=== PATIENT | male | born 1980 | race Caucasian/White ===

== ENCOUNTER 2017-07-05 21:58 | Emergency (ER) | payer OTHER ==
[2017-07-06 00:55] LABS: APPEARANCE,URINE CLEAR; BILIRUBIN,URINE NEGATIVE (NEGATIVE); GLUCOSE, URINE NEGATIVE (NEGATIVE); KETONES,URINE NEGATIVE (NEGATIVE); LEUKOCYTE ESTERASE,URINE NEGATIVE (NEGATIVE); NITRITE,URINE NEGATIVE (NEGATIVE); PROTEIN,URINE 30 mg/dL (NEGATIVE); URINE SPECIFIC GRAVITY 1.028
[2017-07-06] MEDS ORDERED: IBUPROFEN 600 MG TABLET PO ONE (01:38)
--- NOTE | 2017-07-06 01:40 | ER Document Report ---
ED General - General Chief Complaint: Abdominal Pain Stated Complaint: LOWER ABDOMINAL PAIN Time Seen by Provider: 07/05/17 23:41 Notes: Patient is a 36-year-old male without past medical history who presents with 3 days of intermittent right inguinal pain. States that that is a stabbing, sharp , severe pain that is present whenever he is standing or moving but is not present when he is lying flat in bed. He has intermittently had these symptoms over the last several months but they have never lasted this long. Denies any acute injury. He has not seen his primary care doctor regarding today's concerns. Denies any vomiting, diarrhea or testicular pain. TRAVEL OUTSIDE OF THE [place] IN LAST 30 DAYS: No - Related Data Allergies/Adverse Reactions: No Known Allergies Allergy (Verified 07/10/13 15:53) Past Medical History - General Information source: Patient - Social History Smoking Status: Current Every Day Smoker Chew tobacco use (# tins/day): No Frequency of alcohol use: Social Drug Abuse: None Lives with: Spouse/Significant other Family History: Reviewed & Not Pertinent Patient has suicidal ideation: No Patient has homicidal ideation: No - Past Medical History Cardiac Medical History: Reports: Hx Hypertension - no meds-diet controlled Pulmonary Medical History: Denies: Hx Asthma, Hx Bronchitis, Hx Pneumonia Endocrine Medical History: Denies: Hx Diabetes Mellitus Type 2 Renal/ Medical History: Denies: Hx Peritoneal Dialysis Past Surgical History: Reports: Hx Oral Surgery - wisdom teeth, Hx Orthopedic Surgery - pins in right hand - Immunizations Immunizations up to date: Yes Hx Diphtheria, Pertussis, Tetanus Vaccination: Yes Review of Systems - Review of Systems Notes: Constitutional: Negative for fever. HENT: Negative for sore throat. Eyes: Negative for visual changes. Cardiovascular: Negative for chest pain. Respiratory: Negative for shortness of breath. Gastrointestinal: Positive for left lower abdominal pain Genitourinary: Negative for dysuria. Musculoskeletal: Negative for back pain. Skin: Negative for rash. Neurological: Negative for headaches, weakness or numbness. 10 point ROS negative except as marked above and in HPI. Physical Exam - Vital signs Vitals: Temp Pulse Resp BP Pulse Ox 98 F 80 16 119/85 99 07/05/17 22:14 07/05/17 22:14 07/05/17 22:14 07/05/17 22:14 07/05/17 22:14 Interpretation: Normal Notes: PHYSICAL EXAMINATION: GENERAL: Well-appearing, well-nourished and in no acute distress. HEAD: Atraumatic, normocephalic. EYES: Pupils equal round and reactive to light, extraocular movements intact, sclera anicteric, conjunctiva are normal. ENT: nares patent, oropharynx clear without exudates. Moist mucous membranes. NECK: Normal range of motion, supple without lymphadenopathy LUNGS: Breath sounds clear to auscultation bilaterally and equal. No wheezes rales or rhonchi. HEART: Regular rate and rhythm without murmurs ABDOMEN: Soft, nontender, normoactive bowel sounds. No guarding, no rebound. No masses appreciated. : Mild left testicular tenderness to palpation. No hernia in the left inguinal canal. Positive cremasteric reflex bilaterally. No penile lesions. EXTREMITIES: Normal range of motion, no pitting or edema. No cyanosis. NEUROLOGICAL: No focal neurological deficits. Moves all extremities spontaneously and on command. PSYCH: Normal mood, normal affect. SKIN: Warm, Dry, normal turgor, no rashes or lesions noted. Course - Re-evaluation Re-evalutation: 07/06/17 01:39 Patient presents with 2 days of pain in the left inguinal canal and left testicle with ambulation. Exam shows a slight inguinal defect but no appreciable hernia, exquisite left epididymal tenderness, mild swelling to the left testicle. Positive cremasteric reflex bilaterally. Patient has absolutely no abdominal tenderness on palpation. Will obtain a testicular ultrasound 07/06/17 02:58 Testicular ultrasound does show a left-sided hydrocele. This is consistent with patient's history of his pain being worsened with standing and lifting but improved if he lies flat or raises his testicles. I have encouraged the patient to wear supportive briefs and follow-up with urology. At this time will discharge with return precautions and follow-up recommendations. Verbal discharge instructions given a the bedside and opportunity for questions given. Medication warnings reviewed. Patient is in agreement with this plan and has verbalized understanding of return precautions and the need for primary care follow-up in the next 24-72 hours. - Vital Signs Vital signs: Temp Pulse Resp BP Pulse Ox 97.9 F 69 17 121/91 H 98 07/06/17 03:19 07/06/17 03:19 07/06/17 03:19 07/06/17 03:19 07/06/17 03:19 - Laboratory Laboratory results interpreted by me: 07/06/17 00:30 Urine Protein 30 H Urine Urobilinogen 2.0 H - Diagnostic Test Radiology reviewed: Reports reviewed Discharge - Discharge Clinical Impression: Hydrocele in adult Condition: Good Disposition: HOME, SELF-CARE Additional Instructions: You have a left-sided hydrocele which is fluid around your left testicle. This is likely the cause of your pain. You need to follow-up with a urologist if your symptoms are not improving in the next 1 week. Continue to wear supportive briefs that raise your testicle. You may take ibuprofen every 6 hours as needed. Return to the emergency department if you have worsening pain , fever greater than 101F, persistent vomiting, or any other symptoms that are worrisome to you. Forms: Return to Work
[2017-07-06 01:44] LABS: URINE BARBITURATES SCREEN NEGATIVE; URINE METHADONE SCREEN NEGATIVE; URINE OPIATES LOW NEGATIVE; URINE PHENCYCLIDINE SCREEN NEGATIVE
--- NOTE | 2017-07-06 02:38 | RADIOLOGY REPORT (SQ) ---
EXAM DESCRIPTION: U/S SCROTUM W/DOPPLER COMPLETED DATE/TIME: 07/06/2017 2:12 am REASON FOR STUDY: Left epididymal tenderness, eval inguinal hernia COMPARISON: None. TECHNIQUE: Static and realtime simms scale imaging of the scrotum and testes. Selected color Doppler and spectral images recorded to document blood flow. LIMITATIONS: None. FINDINGS: RIGHT: TESTICLE: Normal size. Normal echotexture. Normal blood flow. No mass. 3.9 cm. EPIDIDYMIS: Normal. HYDROCELE OR VARICOCELE: No. HERNIA OR EXTRA-TESTICULAR MASS: No. OTHER: No other significant finding. LEFT: 4.1 cm. TESTICLE: Normal size. Normal echotexture. Normal blood flow. No mass. EPIDIDYMIS: Normal. HYDROCELE OR VARICOCELE: Small. HERNIA OR EXTRA-TESTICULAR MASS: No. OTHER: No other significant finding. Other: No sonographic evidence of inguinal/ scrotal hernia with and without Valsalva, as queried. IMPRESSION: Small left hydrocele. Otherwise, unremarkable SCROTAL ULTRASOUND. NO EVIDENCE OF TESTIC ULAR MASS OR TORSION. No demonstrated hernia. TECHNICAL DOCUMENTATION: JOB ID: [id number]- All Rights Reserved
[2017-07-06] MEDS ORDERED: HYDROCODONE/ACETAMINOPHEN 5-325 MG TABLET PO ONE (03:18)
[2017-07-06 03:20] VITALS: BP 121/91
== END 2017-07-06 03:19 | disposition home or self-care (01) ==
LOC: ER 21:58
DX: N43.3 Hydrocele, unspecified (principal); R10.9 Unspecified abdominal pain; R10.30 Lower abdominal pain, unspecified; F17.200 Nicotine dependence, unspecified, uncomplicated
CPT/HCPCS: 76870; 80307; 81001; 93976; 99284

== ENCOUNTER 2017-09-11 20:16 | Emergency (ER) | payer OTHER ==
--- NOTE | 2017-09-11 21:54 | RADIOLOGY REPORT (SQ) ---
EXAM DESCRIPTION: FOOT LEFT COMPLETE COMPLETED DATE/TIME: 09/11/2017 9:38 pm REASON FOR STUDY: injury COMPARISON: None. NUMBER OF VIEWS: Three views. TECHNIQUE: AP, lateral and oblique radiographic images acquired of the left foot. LIMITATIONS: None. FINDINGS: MINERALIZATION: Normal. BONES: No acute fracture or dislocation. No worrisome bone lesions. JOINTS: No effusions. SOFT TISSUES: No soft tissue swelling. No foreign body. OTHER: No other significant finding. IMPRESSION: NEGATIVE STUDY OF THE LEFT FOOT. NO RADIOGRAPHIC EVIDENCE OF ACUTE INJURY. TECHNICAL DOCUMENTATION: JOB ID: [id number] [employer]- All Rights Reserved
[2017-09-11] MEDS ORDERED: IBUPROFEN 600 MG TABLET PO ONE (22:16)
[2017-09-11] MEDS ORDERED: ONDANSETRON 4 MG TAB.RAPDIS PO ONE (22:16)
[2017-09-11] MEDS ORDERED: OXYCODONE-ACETAMINOPHEN 5-325 MG TABLET PO ONE (22:16)
--- NOTE | 2017-09-11 22:17 | ER Document Report ---
HPI - HPI Patient complains to provider of: left ankle injury Pain Level: 5 Context: 37-year-old male, chief complaint of left ankle injury, states he dunked a basketball and then landed awkwardly on his ankle causing a sharp pain and swelling soon after. He states he can barely walk on the ankle. He denies any other injuries. He takes no daily medications. - CARDIOVASCULAR Cardiovascular: DENIES: Chest pain - DERM Skin Color: Erythema Past Medical History - General Information source: Patient - Social History Smoking Status: Current Every Day Smoker Chew tobacco use (# tins/day): No Frequency of alcohol use: Rare Drug Abuse: None Lives with: Family Family History: Reviewed & Not Pertinent Patient has suicidal ideation: No Patient has homicidal ideation: No - Past Medical History Cardiac Medical History: Reports: Hx Hypertension - no meds-diet controlled Pulmonary Medical History: Denies: Hx Asthma, Hx Bronchitis, Hx Pneumonia Endocrine Medical History: Denies: Hx Diabetes Mellitus Type 2 Renal/ Medical History: Denies: Hx Peritoneal Dialysis Past Surgical History: Reports: Hx Oral Surgery - wisdom teeth, Hx Orthopedic Surgery - pins in right hand - Immunizations Immunizations up to date: Yes Hx Diphtheria, Pertussis, Tetanus Vaccination: Yes Vertical Provider Document - CONSTITUTIONAL General Appearance: WD/WN, Mild Distress - Patient does appear to be mildly uncomfortable - INFECTION CONTROL TRAVEL OUTSIDE OF THE [place] IN LAST 30 DAYS: No - HEENT HEENT: Atraumatic, Normocephalic - NECK Neck: Normal Inspection - RESPIRATORY Respiratory: Breath Sounds Normal, No Respiratory Distress O2 Sat by Pulse Oximetry: 99 - CARDIOVASCULAR Cardiovascular: Regular Rate, Regular Rhythm - GI/ABDOMEN Gastrointestinal: Abdomen Soft, Abdomen Non-Tender - BACK Back: Normal Inspection - MUSCULOSKELETAL/EXTREMETIES Musculoskeletal/Extremeties: Tender - Tenderness over the dorsal foot and over the left lateral malleolus area, soft tissue swelling noted, no deformity, normal capillary refill and sensation, normal dorsalis pedis, normal leg, knee, hip exam - NEURO Level of Consciousness: Awake, Alert, Appropriate Motor/Sensory: No Motor Deficit, No Sensory Deficit - DERM Integumentary: Warm, Dry, No Rash Course - Re-evaluation Re-evalutation: X-rays negative for fracture. Soft tissue swelling noted, patient placed in crutches, ankle stearate, discussed sprain care, discussed follow-up recommendations and return precautions. - Vital Signs Vital signs: Temp Pulse Resp BP Pulse Ox 98.7 F 95 16 124/83 99 09/11/17 20:38 09/11/17 20:38 09/11/17 20:38 09/11/17 20:38 09/11/17 20:38 Procedures - Immobilization Left ankle Pre-Proc Neuro Vasc Exam: Normal Immobilizer type: Leonel wrap, Ankle stirrup Performed by: RN Post-Proc Neuro Vasc Exam: Normal Alignment checked and good: Yes Discharge - Discharge Clinical Impression: Left ankle injury Qualifiers: Encounter type: initial encounter Qualified Code(s): S99.912A - Unspecified injury of left ankle, initial encounter Condition: Stable Disposition: HOME, SELF-CARE Additional Instructions: Examination and x-rays consistent with sprain of the left ankle without evidence of fracture. Apply ice to the area, elevate, use the crutches, use a splint, take the anti-inflammatory. Do so for about the next 2-3 days. Afterwards resume activity as tolerated. Follow-up with primary care. Return to emergency department for any concerning symptoms including severe swelling or pain. Prescriptions: Naproxen 500 mg PO BID #20 tablet Forms: Return to Work, Treatment of Relative/Child
--- NOTE | 2017-09-11 23:06 | RADIOLOGY REPORT (SQ) ---
EXAM DESCRIPTION: ANKLE LEFT COMPLETE COMPLETED DATE/TIME: 09/11/2017 10:28 pm REASON FOR STUDY: left ankle injury and swelling COMPARISON: None. NUMBER OF VIEWS: Three views. TECHNIQUE: AP, lateral, and oblique radiographic images acquired of the left ankle. LIMITATIONS: None. FINDINGS: MINERALIZATION: Normal. BONES: No acute fracture or dislocation. No worrisome bone lesions. JOINTS: No effusions. SOFT TISSUES: No soft tissue swelling. No foreign body. OTHER: No other significant finding. IMPRESSION: NO RADIOGRAPHIC EVIDENCE OF ACUTE INJURY. TECHNICAL DOCUMENTATION: JOB ID: [id number] [employer]- All Rights Reserved
[2017-09-11 23:10] VITALS: BP 143/87
[2017-09-11] MEDS ORDERED: HYDROCODONE/ACETAMINOPHEN 5-325 MG (6 TAB/ER DISP) PO PRN (23:26)
== END 2017-09-11 23:30 | disposition home or self-care (01) ==
LOC: ER 20:16
PROC: 2W3RX1Z Immobilization of Left Lower Leg using Splint (ICD-10-PCS; principal; 2017-09-11)
DX: S99.912A Unspecified injury of left ankle, initial encounter (principal); F17.200 Nicotine dependence, unspecified, uncomplicated; X50.1XXA Overexertion from prolonged static or awkward postures, initial encounter; Y93.67 Activity, basketball
CPT/HCPCS: 99283; 73610; 73630; 29515; L1902; S0119

== ENCOUNTER 2018-03-09 17:40 | Emergency (ER) | payer OTHER ==
[2018-03-09 17:51] VITALS: BP 134/83
[2018-03-09] MEDS ORDERED: LIDOCAINE 5% (700 MG) TRANSDERMAL ADH..PATCH TP ONE (18:53)
[2018-03-09] MEDS ORDERED: KETOROLAC TROMETHAMINE INJ/PF 30 MG/1 ML SDV IM ONE (18:53)
[2018-03-09] MEDS ORDERED: DEXAMETHASONE SOD PHOS INJ 10 MG/1 ML VIAL IM ONE (18:53)
--- NOTE | 2018-03-09 19:00 | ER Document Report ---
HPI - HPI Pain Level: 5 Notes: Patient is a 37-year-old male with no significant past medical history presents to the ED complaining of low back pain status post injury yesterday. Patient states that he was lifting 50 pound bags of cement when he lifted 1 of them and twisted to put it in his vehicle. Patient states that that is the moment that he felt pain. Patient states that the pain does not radiate and stays to his lower back. He notices worsening pain with truncal movements and sitting for prolonged periods. He is otherwise still eating and drinking without difficulties. He is urinating normally and having normal bowel movements. He has not had any injections or procedures to his lower back. Denies any previous history of spinal abscess. Denies any headache, fever, URI, sore throat, chest pain, palpitations, syncope, cough, shortness of breath, wheeze, dyspnea, abdominal pain, nausea/vomiting/diarrhea, urinary retention, dysuria, hematuria, loss of control of bowel or bladder, numbness/tingling, saddle anesthesia, muscle paralysis/weakness, or rash. - ROS Systems Reviewed and Negative: Yes All other systems reviewed and negative Past Medical History - Social History Smoking Status: Current Every Day Smoker Family History: Reviewed & Not Pertinent - Past Medical History Cardiac Medical History: Reports: Hx Hypertension - no meds-diet controlled Pulmonary Medical History: Denies: Hx Asthma, Hx Bronchitis, Hx Pneumonia Endocrine Medical History: Denies: Hx Diabetes Mellitus Type 2 Renal/ Medical History: Denies: Hx Peritoneal Dialysis Past Surgical History: Reports: Hx Oral Surgery - wisdom teeth, Hx Orthopedic Surgery - pins in right hand - Immunizations Immunizations up to date: Yes Hx Diphtheria, Pertussis, Tetanus Vaccination: Yes Vertical Provider Document - CONSTITUTIONAL Agree With Documented VS: Yes Notes: PHYSICAL EXAMINATION: GENERAL: Well-appearing, well-nourished and in no acute distress. LUNGS: Breath sounds clear to auscultation bilaterally and equal. No wheezes rales or rhonchi. HEART: Regular rate and rhythm without murmurs, rubs, gallops. ABDOMEN: Soft, nontender, nondistended abdomen. No guarding, no rebound. No masses appreciated. Normal bowel sounds present. No CVA tenderness bilaterally. No pulsatile mass Musculoskeletal: LE's b/l: FROM to passive/active. Strength 5+/5. No deficits noted. No bony tenderness of extremities. Back: FROM to passive/active. Strength 5+/5. No vertebral point tenderness, stepoffs, or deformities. No other bony tenderness, erythema, swelling, or ecchymosis. SLR negative b/l. + mild tenderness to the Lt L-paraspinal mm, correlates with pain described. Mild spasming. No SI jt tenderness. No foot drop Extremities: No cyanosis, clubbing, or edema b/l. Peripheral pulses 2+. Capillary refill less than 2 seconds. NEUROLOGICAL: Normal speech, ataxic gait. Normal sensory, motor exams. Reflexes 2+ b/l. PSYCH: Normal mood, normal affect. SKIN: Warm, Dry, normal turgor, no rashes or lesions noted. - INFECTION CONTROL TRAVEL OUTSIDE OF THE [place] IN LAST 30 DAYS: No Course - Re-evaluation Re-evalutation: 03/09/18 19:19 Patient is an afebrile, well-hydrated, 37-year-old male who presents to the ED with low back pain, suspect low back strain versus sprain. Vitals are acceptable. PE is otherwise unremarkable for any focal neurological deficits. X-ray was unremarkable for any acute pathology. No other labs or imaging warranted at this time based on H&P. Patient was given Decadron and Toradol as well as a Lidoderm patch. Low suspicion for any meningitis, fracture, expanding /ruptured AAA, cauda equina syndrome, epidural mass lesion/abscess, herniated disc causing severe spinal stenosis, or other systemic infection at this time. Patient is aware that his condition can change from initial presentation and that he needs monitor symptoms closely for any acute changes. I will send him home with a prescription for naproxen and baclofen. Conservative measures otherwise for symptoms. Recheck with your PCM in 3-5 days. Consider consult orthopedic/physical therapy. Return to the ED with any worsening/concerning symptoms otherwise as reviewed discharge. Patient is in agreement. - Vital Signs Vital signs: Temp Pulse Resp BP Pulse Ox 97.9 F 75 14 134/83 H 97 03/09/18 17:47 03/09/18 17:47 03/09/18 17:47 03/09/18 17:47 03/09/18 17:47 Discharge - Discharge Clinical Impression: Low back strain Qualifiers: Encounter type: initial encounter Qualified Code(s): S39.012A - Strain of muscle, fascia and tendon of lower back, initial encounter Condition: Stable Disposition: HOME, SELF-CARE Instructions: Ice Packs ([facility]), Low Back Pain ([facility]), Muscle Strain ([facility]), Warm Packs ([facility]) Additional Instructions: Rest, Ice, Compression, Elevation Tylenol/ibuprofen as needed Light stretches daily Strength exercises as able Moist heat and massage may help F/u with your PCP in 3-5 days for a recheck Consider consult(s) with Orthopedics/physical therapy for ongoing/worsening symptoms Return to the ED with any worsening symptoms and/or development of fever, headache, chest pain, palpitations, syncope, shortness of breath, trouble breathing, abdominal pain, n/v/d, blood in stool/urine, loss of control of bowel /bladder, urinary retention, muscle weakness/paralysis, saddle anesthesia, numbness/tingling, or other worsening symptoms that are concerning to you. Prescriptions: Baclofen [Baclofen 10 mg Tablet] 5 - 10 mg PO BID PRN #10 tablet PRN Reason: Naproxen 500 mg PO BID PRN #30 tablet PRN Reason: Forms: Elevated Blood Pressure, Smoking Cessation Education Referrals: [facility] ([place]) [Provider Group] - Follow up as needed
--- NOTE | 2018-03-09 19:18 | RADIOLOGY REPORT (SQ) ---
EXAM DESCRIPTION: L SPINE WHOLE COMPLETED DATE/TIME: 03/09/2018 7:10 pm REASON FOR STUDY: low back pain s/p injury COMPARISON: None. NUMBER OF VIEWS: Five views including obliques. TECHNIQUE: AP, lateral, oblique, and sacral radiographic images acquired of the lumbar spine. LIMITATIONS: None. FINDINGS: MINERALIZATION: Normal. SEGMENTATION: Normal. No transitional anatomy. ALIGNMENT: Normal. VERTEBRAE: Maintained height. No fracture or worrisome bone lesion. DISCS: Mild disc space narrowing L5-S1. POSTERIOR ELEMENTS: Pars defect L5 on the left. HARDWARE: None in the spine. PARASPINAL SOFT TISSUES: Normal. PELVIS: Intact as visualized. No fractures or worrisome bone lesions. SI joints intact. OTHER: No other significant finding. IMPRESSION: No acute findings. Disc space narrowing L5-S1. Pars defect left L5. TECHNICAL DOCUMENTATION: JOB ID: [id number] [employer]- All Rights Reserved Reading location - IP/workstation name: [email or web address]
[2018-03-09] MEDS ORDERED: HYDROCODONE/ACETAMINOPHEN 5-325 MG (6 TAB/ER DISP) PO PRN (19:21)
== END 2018-03-09 19:50 | disposition home or self-care (01) ==
LOC: ER 17:40
DX: S39.012A Strain of muscle, fascia and tendon of lower back, initial encounter (principal); X50.0XXA Overexertion from strenuous movement or load, initial encounter; Y93.89 Activity, other specified; F17.200 Nicotine dependence, unspecified, uncomplicated
CPT/HCPCS: 99283; 96372; 72110; J1885; J1100

== ENCOUNTER 2020-04-22 20:37 | Emergency (ER) | payer OTHER ==
[2020-04-22] MEDS ORDERED: DIAZEPAM 5 MG TABLET PO ONE (20:53)
[2020-04-22] MEDS ORDERED: OXYCODONE-ACETAMINOPHEN 5-325 MG TABLET PO ONE (20:53)
--- NOTE | 2020-04-22 20:56 | ER Document Report ---
ED Neck/Back Problem - General Chief Complaint: Back Pain Stated Complaint: BACK PAIN Time Seen by Provider: 04/22/20 20:53 Primary Care Provider: EMMY VALLE MD [Primary Care Provider] - Follow up as needed JEANNE KAYE DO [ACTIVE STAFF] - Follow up as needed Notes: CHIEF COMPLAINT: Low back pain HPI: 39-year-old male presenting to the emergency department complaining of low back injury tonight. Patient lifted a 30 pound sandbag and then threw up behind him and felt immediate pain in the lower back. No incontinence of urine or bowel no weakness numbness or tingling in the legs. Patient does report that he has had some discomfort in the past in his back but never anything like this. Injury occurred today. ROS: See HPI - all other systems were reviewed and are otherwise negative Constitutional: no fever GI: no vomiting, no diarrhea, no abdominal pain : no dysuria Integumentary: no rash Allergy: no hives Musculoskeletal: no extremity pain or swelling Neurological: no numbness/tingling, no weakness MEDICATIONS: I agree with the patient medications as charted by the RN. ALLERGIES: I agree with the allergies as charted by the RN. PAST MEDICAL HISTORY/PAST SURGICAL HISTORY: Reviewed and agree as charted by RN. SOCIAL HISTORY: Reviewed and agree as charted by RN. FAMILY HISTORY: No significant familial comorbid conditions directly related to patient complaint EXAM: Reviewed vital signs as charted by RN., CONSTITUTIONAL: Alert and oriented and responds appropriately to questions. Well-appearing; well-nourished, mild distress secondary to pain HEAD: Normocephalic; atraumatic EYES: Conjunctivae clear, sclerae non-icteric ENT: normal nose; no rhinorrhea; moist mucous membranes; pharynx without lesions noted NECK: Supple without meningismus; non-tender; no cervical lymphadenopathy, no masses CARD: symmetric distal pulses RESP: Normal chest excursion without splinting or tachypnea ABD/GI: Normal bowel sounds; non-distended; soft, non-tender, no rebound, no guarding; no palpable organomegaly or masses. BACK: The back appears normal and is tender to palpation in the lower lumbar back and right lumbar musculature, there is no CVA tenderness EXT: Normal ROM in all joints; non-tender to palpation; no cyanosis, no effusions, no edema SKIN: Normal color for age and race; warm; dry; good turgor; no acute lesions noted NEURO: Moves all extremities equally; Motor and sensory function intact. Strength equal 5/5 bilateral lower extremities. Sensation intact and equal bilateral lower extremities. Straight leg raise is negative. No saddle anesthesia on exam. DTRs 2+ intact and equal bilateral lower extremities. PSYCH: The patient's mood and manner are appropriate. Grooming and personal hygiene are appropriate. MDM: 39-year-old male with low back pain after lifting a very heavy object and throwing up behind him. Neurologically intact will obtain an x-ray to evaluate for compression fracture. If x-ray negative will place on pain management refer to orthopedics follow-up TRAVEL OUTSIDE OF THE [place] IN LAST 30 DAYS: No - Related Data Allergies/Adverse Reactions: No Known Allergies Allergy (Verified 09/11/17 21:54) Home Medications: ibuprofen prn Past Medical History - Social History Smoking Status: Current Every Day Smoker Family History: Reviewed & Not Pertinent Patient has homicidal ideation: No - Past Medical History Cardiac Medical History: Reports: Hx Hypertension - no meds-diet controlled Pulmonary Medical History: Denies: Hx Asthma, Hx Bronchitis, Hx Pneumonia Endocrine Medical History: Denies: Hx Diabetes Mellitus Type 2 Renal/ Medical History: Denies: Hx Peritoneal Dialysis Past Surgical History: Reports: Hx Oral Surgery - wisdom teeth, Hx Orthopedic Surgery - pins in right hand - Immunizations Immunizations up to date: Yes Hx Diphtheria, Pertussis, Tetanus Vaccination: Yes Physical Exam - Vital signs Vitals: Temp Pulse Resp BP Pulse Ox 98.2 F 92 18 163/95 H 97 04/22/20 20:41 04/22/20 20:41 04/22/20 20:41 04/22/20 20:41 04/22/20 20:41 Course - Re-evaluation Re-evalutation: 04/22/20 21:18 I do not visualize a definitive compression fracture on my review of the patient's x-ray awaiting official radiology report if negative will discharge with symptomatic treatment and orthopedic follow-up 04/22/20 22:24 X-ray imaging does not show evidence of a fracture per the radiologist. Will discharge home to follow-up with orthopedics - Vital Signs Vital signs: Temp Pulse Resp BP Pulse Ox 98.2 F 92 18 163/95 H 97 04/22/20 20:47 04/22/20 20:41 04/22/20 20:41 04/22/20 20:41 04/22/20 20:41 Discharge - Discharge Clinical Impression: Acute lumbar myofascial strain Qualifiers: Encounter type: initial encounter Qualified Code(s): S39.012A - Strain of muscle, fascia and tendon of lower back, initial encounter Condition: Stable Disposition: HOME, SELF-CARE Additional Instructions: Your imaging studies today do not show evidence of a fracture in the spine. Take the medications as prescribed no driving if taking narcotics or muscle relaxers. Warm heat to the low back to help with spasm. Follow-up closely with orthopedics for further evaluation and treatment call for appointment. If you have uncontrolled pain at home or develop incontinence of urine or bowel please return to the emergency department for reevaluation of your symptoms Prescriptions: Diazepam [Valium 2 mg Tablet] 2 mg PO Q6HP PRN #15 tablet PRN Reason: Hydrocodone/Acetaminophen [[place] 5-325 mg Tablet] 1 tab PO Q4 PRN #15 tablet PRN Reason: Diclofenac Sodium [Voltaren 50 Mg Tablet.] 50 mg PO BID #20 tablet. Referrals: EMMY VALLE MD [Primary Care Provider] - Follow up as needed JEANNE KAYE DO [ACTIVE STAFF] - Follow up as needed
--- NOTE | 2020-04-22 21:56 | RADIOLOGY REPORT (SQ) ---
5 VIEWS OF LUMBAR SPINE HISTORY: Lower back pain. COMPARISON: 03/09/2018 FINDINGS: No acute compression fracture is seen. There is normal lumbar alignment. The disc spaces and facet joints are intact. The sacroiliac joints are preserved. There is possible left L5 pars defect. IMPRESSION: No acute lumbar findings are seen.
[2020-04-22 22:50] VITALS: BP 154/87
== END 2020-04-22 22:51 | disposition home or self-care (01) ==
LOC: ER 20:37
DX: S39.012A Strain of muscle, fascia and tendon of lower back, initial encounter (principal); X50.0XXA Overexertion from strenuous movement or load, initial encounter; F17.200 Nicotine dependence, unspecified, uncomplicated; I10 Essential (primary) hypertension
CPT/HCPCS: 72110; 99283